=== PATIENT | male | born 1985 | race Caucasian/White ===

== ENCOUNTER 2021-04-04 09:17 | Emergency (ER) | payer SELFPAY ==
[2021-04-04] MEDS ORDERED: Sodium Chloride 0.9% 10 ML Syringe FLUSH PRN (09:20)
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
[2021-04-04 09:37] LABS: BARBITURATE SCREEN,URINE NEGATIVE (NEGATIVE)
[2021-04-04 09:38] LABS: BENZODIAZEPINES SCREEN,URINE NEGATIVE (NEGATIVE); BUPRENORPHINE SCREEN,URINE NEGATIVE (NEGATIVE); METHAMPHETAMINE SCREEN, URINE POSITIVE (NEGATIVE); THC SCREEN,URINE 50 NG/ML NEGATIVE (NEGATIVE)
[2021-04-04] MEDS ORDERED: Lactated Ringers 1,000 ML IV ONE (09:47)
[2021-04-04] MEDS ORDERED: LORazepam 2 MG/ML SDV IVPUSH ONE (09:47)
--- NOTE | 2021-04-04 09:49 | PCM.EKG ---
#1 Interpretation EKG Date: 04/04/21 Time: :22 Rhythm: NSR Rate (Beats/Min): 86 [place]: Normal P-Wave: Present QRS: Normal ST-T: Normal QT: Normal Comparison: NA - No Prior EKG
[2021-04-04 10:08] LABS: ACETAMINOPHEN 0 ug/ml (10-30); ANION GAP 14.2 mmol/L (5-15); CHLORIDE,CL 103 mmol/L (98-107); SODIUM,NA 138 mmol/L (136-145)
== END 2021-04-04 10:58 | disposition home or self-care (01) ==
LOC: VM.ED 09:17
DX: T43.623A Poisoning by amphetamines, assault, initial encounter (principal)
CPT/HCPCS: 80053; 80143; 80179; 80305-QW; 80307; 81003; 83605; 83735; 84484; 85025; 85379; 93005; 93010; 96374; 99283; 99285-25; J2060; J7120